=== PATIENT | female | born 1985 | race Caucasian/White ===

== ENCOUNTER 2017-08-18 17:15 | Emergency (ER) | payer BC ==
--- NOTE | 2017-08-18 17:17 | UC ---
Abdominal Pain Female HPI - HPI Summary HPI Summary: 31 year old female presents with severe suprapubic pain. - History of Current Complaint Stated Complaint: ABDOMINAL PAIN Time Seen by Provider: 08/18/17 17:17 Hx Obtained From: Patient Onset/Duration: Sudden Onset Severity Initially: Moderate Severity Currently: Moderate Pain Scale Used: 0-10 Numeric - 5 Location: Suprapubic Character: Cramping, Sharp Alleviating Factor(s): Nothing Allergies/Adverse Reactions: Allergies Allergy/AdvReac Type Severity Reaction Status Date / Time No Known Allergies Allergy Verified 08/18/17 17:22 Home Medications: Home Medications Herbs* 08/18/17 [History] PMH/Surg Hx/FS Hx/Imm Hx Previously Healthy: Yes Review of Systems Constitutional: Negative Skin: Negative Eyes: Negative ENT: Negative Respiratory: Negative Cardiovascular: Negative Gastrointestinal: Other - suprapubic pain Genitourinary: Negative Motor: Negative Neurovascular: Negative Musculoskeletal: Negative Neurological: Negative Psychological: Negative All Other Systems Reviewed And Are Negative: Yes Physical Exam Triage Information Reviewed: Yes Vital Signs Reviewed: Yes Eye Exam: Normal ENT Exam: Normal Dental Exam: Normal Neck exam: Normal Neck: Positive: 1 Respiratory Exam: Normal Cardiovascular Exam: Normal Abdomen Description: Positive: Other: - suprpubic pain Musculoskeletal Exam: Normal Neurological Exam: Normal Psychological Exam: Normal Skin Exam: Normal Abd Pain Female Course/Dx - Differential Dx/Diagnosis Provider Diagnoses: suprapubic pain Discharge - Discharge Plan Condition: Stable Disposition: OTHER Discharge Disposition Comment: patient suggested to go to er Patient Education Materials: Dysuria (ED) Referrals: No Primary Care Phys,NOPCP [Primary Care Provider] - Additional Instructions: patient suggested to go to er for suprapubic pain
[2017-08-18 17:22] VITALS: BP 109/61
== END 2017-08-18 18:31 ==
LOC: UCEAST 17:15
DX: R10.30 Lower abdominal pain, unspecified (principal); Z32.02 Encounter for pregnancy test, result negative
CPT/HCPCS: 81003; 84702; 99202; G0463

== ENCOUNTER → 2017-08-18 18:49 | Emergency (ER) | payer BC ==
[~2017-08-18 18:49] MED LIST: Iohexol 300* (CONTRAST) 10 ML SDV IV ONE; Ketorolac INJ* 30 MG/ML 1 ML VIAL IV ONE; NS 0.9% 1000 ML* 2,000 ML IV ONE; Phenazopyridine TAB* 100 MG PO ONE; Sulfamethox/Trimethoprim DS 800/160* TAB PO ONE
[2017-08-18 20:53] LABS: Urine Bilirubin Negative (Negative); Urine Glucose Negative (Negative); Urine Nitrite Negative (Negative)
[2017-08-18 21:36] LABS: Hematocrit 40 % (35-47); Hemoglobin 13.5 g/dl (12.0-16.0); Mean Corpuscular HGB Conc 34 g/dl (31-36); Mean Corpuscular Hemoglobin 29 pg (27-31); Mean Corpuscular Volume 85 fL (80-97); Mean Platelet Volume 8 um3 (7.4-10.4); Red Blood Count 4.66 10^6/ul (4.0-5.4); Red Cell Distribution Width 13 % (10.5-15); White Blood Count 7.6 10^3/ul (3.5-10.8)
[2017-08-18 21:53] LABS: ALT 21 U/L (7-52); AST 16 U/L (13-39); Albumin 4.5 g/dL (3.2-5.2); Alkaline Phosphatase 47 U/L (34-104); Anion Gap 5 mmol/L (2-11); BUN/Creatinine Ratio 14.9 (8-20); Blood Urea Nitrogen 10 mg/dL (6-24); C Reactive Protein < 1.00 mg/L (< 5.00); CO2 Carbon Dioxide 28 mmol/L (22-32); Calcium 9.5 mg/dL (8.6-10.3); Chloride 105 mmol/L (101-111); EGFR Non-African American 102.7 (>60); Globulin 2.9 g/dL (2-4); Glucose 112 mg/dL (70-100); Sodium 138 mmol/L (133-145); Total Protein 7.4 g/dL (6.4-8.9)
[2017-08-18 23:35] LABS: Trichomonas Source Endocervical (Negative)
--- NOTE | 2017-08-18 23:55 | ED ---
Augusto Carrero Alfonso, scribed for Douglas Garibay MD on 08/18/17 at 2056 . Abdominal Pain/Female - HPI Summary HPI Summary: This patient is a 31 year old F presenting from [facility] to [facility] accompanied by male with a chief complaint of lower abdominal pain since 3 days ago. The patient rates the aching pain 10/10 in severity. Symptoms aggravated by nothing. Symptoms alleviated by urination. Patient reports urinary frequency and tiredness. Patient denies vaginal discharge, bowel symptoms, and diarrhea. She has been taking herbs and probiotics. 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 She denies abdominal PSHx. LMP ended yesterday. - History of Current Complaint Chief Complaint: EDAbdPain Stated Complaint: ABD PAIN/SENT BY CC Time Seen by Provider: 08/18/17 20:52 Hx Obtained From: Patient Onset/Duration: Gradual Onset, Lasting Days - 2, Still Present Timing: Constant Severity Currently: Severe Pain Intensity: 10 Pain Scale Used: 0-10 Numeric Location: Other - Lower Character: Dull - aching Aggravating Factor(s): Nothing Alleviating Factor(s): Other: - Urination Associated Signs and Symptoms: Positive: Other: - urinary frequency and tiredness. Patient denies vaginal discharge, bowel symptoms, and diarrhea. Allergies/Adverse Reactions: Allergies Allergy/AdvReac Type Severity Reaction Status Date / Time No Known Allergies Allergy Verified 08/18/17 17:22 PMH/Surg Hx/FS Hx/Imm Hx History: Reports: Other Problems/Disorders - chronic UTI Opthamlomology History: Denies: Hx Legally Blind EENT History: Denies: Hx Deafness Infectious Disease History: No Infectious Disease History: Denies: Traveled Outside the [place] in Last 30 Days - Family History Known Family History: Positive: Diabetes - DM grandmother - Social History Alcohol Use: None Substance Use Type: Reports: None Smoking Status (MU): Never Smoked Tobacco Review of Systems Positive: Abdominal Pain, Other - Negative bowel sx. Negative: Diarrhea Positive: frequency. Negative: discharge Neurological: Other - tiredness All Other Systems Reviewed And Are Negative: Yes Physical Exam - Summary Physical Exam Summary: General: well-appearing, no pain distress Skin: warm, color reflects adequate perfusion, dry Head: normal Eyes: EOMI, EMERITA ENT: normal Neck: supple, nontender Respiratory: CTA, breath sounds present Cardiovascular: RRR Abdomen: soft, Suprapubic tenderness Bowel: present Musculoskeletal: normal, strength/ROM intact Neurological: normal, sensory/motor intact, A&O x3 Psychological: affect/mood appropriate Triage Information Reviewed: Yes Vital Signs On Initial Exam: Initial Vitals Temp Pulse Resp BP Pulse Ox 98.5 F 73 20 115/52 99 08/18/17 18:55 08/18/17 18:55 08/18/17 18:55 08/18/17 18:55 08/18/17 18:55 Vital Signs Reviewed: Yes - [place] Coma Scale Coma Scale Total: 15 Diagnostics - Vital Signs Vital Signs Temp Pulse Resp BP Pulse Ox 08/18/17 20:44 66 99 08/18/17 20:42 111/71 08/18/17 18:55 98.5 F 73 20 115/52 99 - Laboratory Lab Results: Lab Results 08/18/17 Range/Units 20:40 Urine Color Yellow Urine Appearance Clear Urine pH 5.0 (5-9) Ur Specific [place] 1.016 (1.010-1.030) Urine Protein Negative (Negative) Urine Ketones Negative (Negative) Urine Blood Negative (Negative) Urine Nitrate Negative (Negative) Urine Bilirubin Negative (Negative) Urine Urobilinogen Negative (Negative) Ur Leukocyte Esterase Negative (Negative) Urine Glucose Negative (Negative) Urine Ascorbic Acid * H (Negative) Result Diagrams: 08/18/17 21:27 08/18/17 21:27 Lab Statement: Any lab studies that have been ordered have been reviewed, and results considered in the medical decision making process. - CT A/P CT Interpretation Completed By: Radiologist - Pending official interpretation from radiologist. See [employer]. - Additional Comments Diagnostic Additional Comments: US pelvic Pending official interpretation from radiologist. See [employer]. Abdominal Pain Fem Course/Dx - Course Course Of Treatment: DISCUSSED RESULTS WITH PATIENT. PAIN WORSENS WITH ANY MANIPULATION OF THE BLADDER. PATIENT APPEARS TO HAVE A CHRONIC CYSTITIS. SHE HAS A F/U WITH GYNECOLGY 08/26/17. ALSO TO F/U WITH UROLOGY. RX BACTRIM PO BID X 7 DAYS AND PYRIDIUM. RETURN IF WORSE. - Diagnoses Provider Diagnoses: Pelvic pain, Cystitis Discharge - Discharge Plan Condition: Stable Disposition: HOME Prescriptions: Phenazopyridine TAB* [Pyridium 100 mg TAB*] 100 mg PO TID PRN #15 tab PRN Reason: Spasms - Bladder Sulfamethox/Trimethoprim DS* [Bactrim DS 800/160 TAB*] 1 tab PO BID #12 tab Patient Education Materials: Pelvic Pain in Women (ED), Dysuria (ED) Referrals: [facility] [Outside] - 3 Days [facility] [Provider Group] Additional Instructions: RETURN TO THE EMERGENCY DEPARTMENT FOR CHANGING OR WORSENING SYMPTOMS. FOLLOW UP WITH BOTH GYNECOLOGY AND UROLOGY FOR YOUR PELVIC PAIN/CYSTITIS. RETURN TO THE EMERGENCY DEPARTMENT FOR ANY WORSENING OF YOUR CONDITION; PAIN, FEVER, YOU FEEL ILL OR QUESTIONS OR CONCERNS. The documentation as recorded by the Augusto loyola Alfonso accurately reflects the service I personally performed and the decisions made by me, Douglas Garibay MD.
[2017-08-19 02:51] VITALS: BP 112/69
--- NOTE | 2017-08-19 02:59 | ED ---
Connie Carrero Abhishek, scribed for Oleg Guevara MD on 08/19/17 at 0217 . Progress - Progress Note Progress Note: This patient was signed out from Dr. Garibay, pending disposition, awaiting CTA and US Pelvic. US Pelvic reveals no ovarian torsion. Color flow with appropriate arterial and venous waveforms. No free flui and normal uterus endometrial stripe complex 4 mm thick. ED physician has reviewed this radiology report and agrees. CT A/P reveals Moderate feces colon. No bowel obstruction, colitis, or free air. Normal appendix. Unremarkable pancreas, kidneys, and gallbladder. Unremarkable uterus and decompressed bladder. Trace physiologic free fluid cul-de-sac. The patients condition is _stable and will be _ discharged to home with Dx of abdominal pain. Course/Dx - Course Course Of Treatment: DISCUSSED RESULTS WITH PATIENT. PAIN WORSENS WITH ANY MANIPULATION OF THE BLADDER. PATIENT APPEARS TO HAVE A CHRONIC CYSTITIS. SHE HAS A F/U WITH GYNECOLGY 08/26/17. ALSO TO F/U WITH UROLOGY. RX BACTRIM PO BID X 7 DAYS AND PYRIDIUM. RETURN IF WORSE. - Diagnoses Provider Diagnoses: Pelvic pain, Cystitis The documentation as recorded by the Connie loyola Abhishek accurately reflects the service I personally performed and the decisions made by Paola ayala Dong, MD.
--- NOTE | 2017-08-19 08:02 | RAD ---
HISTORY: Suprapubic pain COMPARISONS: None TECHNIQUE: Multiple transverse and longitudinal ultrasound images were obtained of the pelvis using grayscale, color Doppler, and spectral Doppler imaging using the endovaginal transducer. FINDINGS: UTERUS: The uterus measures 8 x 4.2 x 5.3 cm. The uterus is normal in shape, size, contour, and echotexture. ENDOMETRIUM: The endometrial stripe is smooth. The endometrium measures 0.4 cm in thickness. CUL-DE-SAC: There is no free fluid within the cul-de-sac. RIGHT OVARY: The right ovary measures 3.1 x 2.5 x 1.9 cm. Normal arterial and venous waveforms are identifiable within the ovary on spectral Doppler imaging. LEFT OVARY: The left ovary measures 3.5 x 2.5 x 2.4 cm. Normal arterial and venous waveforms are identifiable within the ovary on spectral Doppler imaging. BLADDER: The bladder is not well visualized. OTHER: None IMPRESSION: NO SONOGRAPHIC FEATURES OF TORSION. PLEASE NOTE THAT PARTIAL OR INTERMITTENT TORSION MAY BE SONOGRAPHICALLY NORMAL.
--- NOTE | 2017-08-19 08:13 | RAD ---
CLINICAL HISTORY: Suprapubic pain, history of chronic UTIs COMPARISON: None TECHNIQUE: Multiple contiguous axial CT scans were obtained of the abdomen and pelvis after the administration of intravenous contrast. Coronal and sagittal multiplanar reformations are submitted for review. FINDINGS: LUNG BASES: The lung bases are clear. LIVER: The liver is normal in shape, size, contour, and attenuation. BILE DUCTS: There is no intrahepatic or extrahepatic biliary dilatation. GALLBLADDER: The gallbladder is normal, without pericholecystic inflammatory change. PANCREAS: The pancreas is normal, without mass or ductal dilatation. SPLEEN: Normal in size and appearance. UPPER GI TRACT: Evaluation of the gastrointestinal tract is limited by incomplete gastric distention. The upper GI tract is unremarkable. SMALL BOWEL AND MESENTERY: The small bowel is normal in contour, course, and caliber. There is no obstruction or dilatation. COLON: The colon is normal in contour, course, caliber. There is no pericolonic inflammatory change. There is large amount of stool within the colon. There is a tubular, vermiform, hollow viscus that is blind ending, and originates from the cecum, consistent with a normal appendix. There is no periappendiceal inflammatory change. This is best seen on coronal images 32 through 37 ADRENALS: Normal bilaterally. KIDNEYS: The kidneys are normal in shape, size, contour, and axis. There is no hydronephrosis or nephrolithiasis. BLADDER: The bladder is collapsed and is not well evaluated PELVIC ORGANS: The uterus and adnexa are grossly normal for technique. There is trace free fluid within the pelvic cul-de-sac which may be physiologic within a reproductive age female. AORTA: The aorta is normal. IVC: Unremarkable LYMPH NODES: There is no lymphadenopathy by size criteria. ABDOMINAL WALL: There is no evidence for abdominal wall hernia. BONES AND SOFT TISSUES: There are mild diffuse degenerative changes. OTHER: None IMPRESSION: NO ACUTE CT PATHOLOGY OF THE VISUALIZED ABDOMEN OR PELVIS.
== END | disposition home or self-care (01) ==
LOC: ED 18:49
DX: R10.2 Pelvic and perineal pain (principal); N30.90 Cystitis, unspecified without hematuria
CPT/HCPCS: 36415; 74177; 76830; 80053; 81003; 83605; 84702; 85025; 86140; 87480; 87491; 87510; 87591; 87661; 96374; 99283; A9270-GY; J1885; Q9967